=== PATIENT | male | born 1985 | race Caucasian/White ===

== ENCOUNTER 2020-07-09 16:44 | Emergency (ER) | payer BC, OTHER, SELFPAY ==
[2020-07-09 16:54] VITALS: BP 134/99; PULSE 60; RESP 20; TEMP 36.7; O2SAT 98
--- NOTE | 2020-07-09 17:44 | ED.GENADULT ---
HPI - General Adult General Chief complaint: Anxiety Stated complaint: feeling foggy Source: patient and RN notes reviewed Limitations: no limitations History of Present Illness HPI narrative: The patient, a non-smoker nondrinker prior and [facility], presents with sleeplessness. Patient indicates about 2 weeks ago he and his 33 y/o went through the stressor of early, 8-week miscarriage of their first . He complains of adjustment insomnia/adjustment disorder w- insomnia since then--manifested by terminal insomnia. After becoming drowsy, he wakes through midcycle and only ends up with several hours of sleep. He denies depression, poor concentration, weight loss, guilt, SI/HI, anhedonia,energy loss [ he works out regularly] . He says initially he got choked up [had a crying spell or so], like his continues- but he is able to compartmentalize . Symptoms are mild to moderate unrelieved with OTC preparations like melatonin, Benadryl and working out regimens. Related Data Allergies Allergy/AdvReac Type Severity Reaction Status Date / Time cefaclor Allergy Unknown Verified 06/03/17 21:20 vilazodone [Viibryd] Allergy Unknown sexual Verified 06/03/17 21:20 dysfunction No Known Allergies Allergy Unverified 12/20/18 18:46 Review of Systems Review of Systems: Narrative: General/Constitutional: No weight loss,fever Eyes: N0: Redness,discharge Ears/Nose/Throat: No: Epistaxis,ear discharge Respiratory: Denies: Hemoptysis Gastrointestinal: No Vomiting, Bleeding-rectal Skin: No Lumps, eruption Neurologic: No Focal Weakness,Sz Hematologic: Denies: Petechiae/Purpura Psychiatric: No: Suicida ideationl All Other Systems: Reviewed and Negative [facility] Social History Social History Gender identity (if verbalized by the patient): Male Comments At time of signature, agree with nursing past medical, surgical, social and family history. There is no relevant family history pertinent to the presenting complaint Exam Narrative: Exam Narrative: General Appearance: Well appearing, , Conjunctiva clear Ears: External ear normal Nose: Normal nose Mouth/Throat: Normal appearing, Normal lips, Supple Respiratory: Airway patent, No respiratory distress Cardiovascular: No JVD Musculoskeletal: Full ROM Skin: Warm, Dry Neurological: A&O x3, CN II-X intact Psychiatric: Normal mood, Normal affect Course Vital Signs Vital signs: Vital Signs Temperature 98.1 F 07/09/20 16:54 Pulse Rate 60 07/09/20 16:54 Respiratory Rate 20 07/09/20 16:54 Blood Pressure 134/99 H 07/09/20 16:54 Pulse Oximetry 98 07/09/20 16:54 Temperature 98.1 F 07/09/20 16:54 Pulse Rate 60 07/09/20 16:54 Respiratory Rate 20 07/09/20 16:54 Blood Pressure 134/99 H 07/09/20 16:54 Pulse Oximetry 98 07/09/20 16:54 Medical Decision Making Vital Signs Vital Signs: Vital Signs Temperature 98.1 F 07/09/20 16:54 Pulse Rate 60 07/09/20 16:54 Respiratory Rate 20 07/09/20 16:54 Blood Pressure 134/99 H 07/09/20 16:54 Pulse Oximetry 98 07/09/20 16:54 Temperature 98.1 F 07/09/20 16:54 Pulse Rate 60 07/09/20 16:54 Respiratory Rate 20 07/09/20 16:54 Blood Pressure 134/99 H 07/09/20 16:54 Pulse Oximetry 98 07/09/20 16:54 Discharge Plan Discharge Clinical Impression: Insomnia Patient Disposition: Home, Self-Care Condition: Stable Instructions: Mood Disorders (ED), Insomnia (ED) Prescriptions: New trazodone 50 mg tablet 50 mg PO HS PRN (Reason: insomnia) Qty: 30 RF: 2 Follow-up/Referrals: PHYSICIAN,PLANT TECH [Primary Care Provider] -
== END 2020-07-09 17:49 | disposition home or self-care (01) ==
PROVIDERS: Emergency Provider Emergency Medicine
DX: G47.00 Insomnia, unspecified (principal)
CPT/HCPCS: 99213; G0463

== ENCOUNTER 2023-04-12 12:58 | Outpatient (CLI) | payer BC, OTHER, SELFPAY ==
--- NOTE | ~2023-04-12 | MR_ITS ---
MRI of the cervical spine Clinical History: Weakness Technique: Axial T2-weighted and gradient images, and sagittal T1-weighted, T2-weighted, and STIR pat ges were acquired. Findings: There is no fracture or subluxation of the cervical spine. Vertebral bodies maintain normal height and alignment. No bone marrow signal abnormality seen. At C2-C3, there is no disc bulge or herniation. No spinal canal stenosis, cord compression, or neural foraminal narrowing. At C3-C4, there is tiny disc bulge and minimal facet arthropathy. No spinal canal stenosis, cord comp ression, or definite neural foraminal narrowing. At C4-C5, there is no definite disc bulge or herniation. No spinal canal stenosis, cord compression, or neural foraminal narrowing. At C5-C6, there is mild bilateral neural foraminal narrowing, left worse than right, related to facet arthropathy. No disc bulge or herniation. No central canal stenosis or cord compression. At C6-C7, there is minimal disc osteophyte complex. No spinal canal stenosis or cord compression. Pro bable minimal bilateral neural foraminal narrowing present. No abnormal signal seen in the spinal cord. Paravertebral soft tissues are unremarkable. Impression: Mild degenerative spondylosis at C5-C6 and C6-C7, as above. Reviewed, dictated and finalized at [facility]. RESIDENT Impression: Mild degenerative spondylosis at C5-C6 and C6-C7, as above.
--- NOTE | ~2023-04-12 | MR_ITS ---
MRI of the brain Clinical History: Weakness, tremor Technique: Axial and sagittal T1-weighted images were acquired. These were followed by axial T2-weigh jesus manuel, diffusion weighted, gradient, and FLAIR images. Findings: No abnormal signal seen in the brain parenchyma. No acute infarct, intracranial hemorrhage, or mass lesion. Ventricles and subarachnoid spaces are unremarkable. Orbits are unremarkable. Paranasal sinuses and m astoid are clear. Major intracranial flow voids are intact. Sagittal midline structures are intact. IMPRESSION: Unremarkable exam. Reviewed, dictated and finalized at [facility] SORTER IMPRESSION: Unremarkable exam.
--- NOTE | ~2023-04-12 | MR_ITS ---
MRI of the lumbar spine Clinical History: Weakness Technique: Axial T2-weighted images, and sagittal T1-weighted, T2-weighted, and and T2 fat-sat images were acquired. Findings: There is no fracture or sublocation of the lumbar spine. Vertebral bodies maintain normal h eight and alignment. No suspicious bone marrow signal abnormality seen. At L1-L2, L2-L3, L3-4, L4-L5, there is no disc bulge or herniation. No spinal canal stenosis or neura l foraminal narrowing at these levels. At L5-S1, there is mild left foraminal disc bulge with minimal left foraminal narrowing. No right rona ral foraminal narrowing. No central canal stenosis. Paravertebral soft tissues are unremarkable. Impression: Minimal degenerative spondylosis at L5-S1, as detailed above. Reviewed, dictated and finalized at [facility]. SERVICE CONSULTANT Impression: Minimal degenerative spondylosis at L5-S1, as detailed above.
--- NOTE | ~2023-04-12 | MR_ITS ---
MRI of the thoracic spine Clinical History: Weakness Technique: Axial T2-weighted and gradient images, and sagittal T1-weighted, T2-weighted, and STIR pat ges were acquired. Findings: There is no fracture or subluxation of the thoracic spine. Vertebral bodies maintain normal height and alignment. No bone marrow signal abnormality seen. No significant disc bulge or herniation seen at any thoracic level. No spinal canal stenosis, cord co mpression, or neural foraminal narrowing evident. No epidural mass or collection seen. No abnormal signal seen in the spinal cord. Paravertebral soft tissues are unremarkable. Impression: No significant abnormality seen. Reviewed, dictated and finalized at [facility]. ON INSTALLER Impression: No significant abnormality seen.
== END 2023-04-12 12:59 | disposition home or self-care (01) ==
PROVIDERS: Visit Provider Internal Medicine Geriatric Medicine
DX: R25.1 Tremor, unspecified (principal); M43.02 Spondylolysis, cervical region; M51.37 Other intervertebral disc degeneration, lumbosacral region
CPT/HCPCS: 70551; 72141; 72146; 72148

== ENCOUNTER 2023-06-08 17:25 | Emergency (ER) | payer BC, OTHER, SELFPAY ==
[2023-06-08 17:36] VITALS: BP 137/102; PULSE 70; RESP 16; TEMP 36.4; O2SAT 98
--- NOTE | 2023-06-08 17:52 | ED.URI ---
HPI - URI/Sore Throat General Chief Complaint: Upper Respiratory Infection Stated Complaint: bilateral ear discomfort,cold symptoms Time Seen by Provider: 06/08/23 17:38 Source: patient and RN notes reviewed Mode of arrival: ambulatory Limitations: no limitations History of Present Illness HPI Narrative: Patient presents today complaining of a 3 day history of nasal congestion, cough, irritation of the throat, bilateral ear fullness. Denies fever shortness of breath. He has been taking DayQuil with some relief. Denies history of asthma or COPD. He is a nonsmoker. States his and child were sick with similar symptoms last week and symptoms have resolved. Related Data Home Medications Medication Instructions Recorded Confirmed lorazepam 0.5 mg tablet mg 06/08/23 sertraline 100 mg tablet mg 06/08/23 Allergies Allergy/AdvReac Type Severity Reaction Status Date / Time cefaclor Allergy Unknown Unknown Verified 06/08/23 17:36 No Known Allergies Allergy Unverified 12/20/18 18:46 vilazodone [Viibryd] AdvReac Unknown sexual Verified 06/08/23 17:36 dysfunction Review of Systems Review of Systems: CONSTITUTIONAL: Denies body aches, fever, chills, or sweats. EYES: Denies visual changes, redness, or discharge. ENT: Denies rhinorrhea. + congestion, throat irritation, ear fullness CARDIOVASCULAR: Denies chest pain, palpitations, or edema. RESPIRATORY: Denies dyspnea.+ cough GASTROINTESTINAL: Denies abdominal pain, nausea, vomiting, or diarrhea. GENITOURINARY: Denies dysuria or hematuria. SKIN: Denies rash, itching, or wounds. MUSCULOSKELETAL: Denies back pain, joint pain, or myalgia. NEUROLOGIC: Denies headache, numbness, tingling, or weakness. PSYCH: Denies depression or anxiety. PMFSH Social History Social History Gender identity (if verbalized by the patient): Male Comments At time of signature, I have reviewed and agree with nursing past medical, surgical, social and family history unless otherwise noted. Please see nursing chart for further information. There is no relevant family history pertinent to the presenting complaint Exam Narrative: GENERAL: Well-appearing, well-nourished, and in no acute distress. HEAD: Normocephalic, atraumatic. EYES: EOMI. No redness or drainage. Conjunctivae normal. ENT: Mucous membranes pink and moist. Nares clear with rhinorrhea. TMs normal bilaterally. Throat normal. Uvula midline. NECK: Normal AROM. Supple. No lymphadenopathy. CHEST: No respiratory distress. Clear to auscultation. HEART: Regular rate and rhythm. No murmur appreciated. EXTREMITIES: Normal range of motion. No edema. SKIN: Warm, dry, no rash. Capillary refill normal. Normal skin turgor. NEURO: No focal deficits. Alert and oriented x3. Gait steady. PSYCH: Normal affect. No signs of depression or anxiety. Course Course Level of Care: Express Care Visit Vital Signs Vital signs: Vital Signs Temperature 97.6 F 06/08/23 17:36 Pulse Rate 70 06/08/23 17:36 Respiratory Rate 16 06/08/23 17:36 Blood Pressure 137/102 H 06/08/23 17:36 Pulse Oximetry 98 06/08/23 17:36 Oxygen Delivery Room Air 06/08/23 17:36 Temperature 97.6 F 06/08/23 17:36 Pulse Rate 70 06/08/23 17:36 Respiratory Rate 16 06/08/23 17:36 Blood Pressure 140/90 06/08/23 18:00 Pulse Oximetry 98 06/08/23 17:36 Oxygen Delivery Room Air 06/08/23 17:36 Reviewed MDM - URI/Sore Throat MDM Narrative Medical decision making narrative: Patient's symptoms are likely due to a viral illness. Discussed [id number] treatment. Patient requests antibiotics and steroids as he is going out of town for work. Discussed that he has no signs of bacterial infection. Will prescribe short course of steroids to help with symptoms. Anticipatory guidance given. Differential Diagnosis Differential diagnosis: Likely upper respiratory inf
[2023-06-08 18:00] VITALS: BP 140/90
== END 2023-06-08 18:00 | disposition home or self-care (01) ==
PROVIDERS: Emergency Provider Nurse Practitioner; PCP Internal Medicine Geriatric Medicine
DX: J06.9 Acute upper respiratory infection, unspecified (principal); Z79.899 Other long term (current) drug therapy
CPT/HCPCS: 99213; G0463